=== PATIENT | male | born 1960 | race Two or more races ===

== ENCOUNTER 2019-02-11 00:26 | Emergency (ER) | payer OTHER ==
[~2019-02-11] VITALS: Ht 170.2 cm; Wt 54.4 kg
--- NOTE | 2019-02-11 00:42 | NUR ---
[facility] TO [facility] BED 7. AAOX4. SMELLS OF ALCOHOL. AMBULATORY. BREATHING DEEP BUT EVEN. C/O SOB. PT REPORTS STARTED TONIGHT. NOTED COUGHING AND NASAL CONGESTION. NOTED WITH BILAT WHEEZING AND CRACKLES. PT IS AFEBRILE. O2 SAT 99% ON RA. AWAITING MD FOR EVAL.
[2019-02-11] MEDS ORDERED: ALBUTEROL FS 2.5 MG/3 ML VIAL.NEB NEB ONE (01:00)
--- NOTE | 2019-02-11 01:15 | NUR ---
RT CALLED FOR BRAETHING [place]
[2019-02-11] MEDS ORDERED: ALBUTEROL FS 2.5 MG/3 ML VIAL.NEB ONE (01:28)
--- NOTE | 2019-02-11 02:16 | NUR ---
Patient discharged to home in stable condition. Written and verbal after care instructions given. Patient verbalizes understanding of instruction. Pt ambulatory with a steady gait
--- NOTE | 2019-02-11 02:16 | NUR ---
Pt will go back to [facility]. bus pass provided. signed homeless discharge checklist
--- NOTE | 2019-02-11 02:37 | NUR ---
Patient discharged in stable condition. Written and verbal after care instructions given. Patient verbalizes understanding of instruction. Pt ambulatory with a steady gait
[2019-02-11 02:40] VITALS: BP 128/72
== END 2019-02-11 02:42 | disposition home or self-care (01) ==
LOC: ER 00:26
DX: J40 Bronchitis, not specified as acute or chronic (principal); I10 Essential (primary) hypertension; Z88.0 Allergy status to penicillin
CPT/HCPCS: 71045-TC